=== PATIENT | female | born 1975 | race Native Hawaiian/Other Pacific Islander ===

== ENCOUNTER 2018-09-05 11:06 | Outpatient (CLI) | payer BC | END 2018-09-05 11:07 | disposition home or self-care (01) | LOC: C.MAMMO 11:06 | DX: Z12.31 Encounter for screening mammogram for malignant neoplasm of breast (principal) ==

== ENCOUNTER 2018-10-08 10:29 | Outpatient (CLI) | payer BC | END 2018-10-08 10:30 | disposition home or self-care (01) | LOC: C.USIC 10:29 | DX: R92.2 Inconclusive mammogram (principal) ==